=== PATIENT | female | born 1945 | race Caucasian/White ===

== ENCOUNTER 2022-05-14 12:42 | Inpatient (IN) | payer MEDICARE, MEDICAID, SELFPAY ==
[2022-05-14] VITALS (43 sets, daily range): BP systolic 84–128; BP diastolic 34–93; PULSE 77–129; RESP 12–27; TEMP 36.2–36.5; O2SAT 95–100
--- NOTE | ~2022-05-14 | XR_ITS ---
EXAMINATION: XR chest 2V Exam Date/Time: 05/14/2022 15:05 [facility] HISTORY: Cough, fever, right sided rales Comparison: 02/06/2014. RESULT: Lines, tubes, and devices: Cholecystectomy clips. Lungs and pleura: Senescent and emphysematous change. Old granulomatous disease. No focal consolidat ion. Cardiomediastinal silhouette: Stable. Other: No acute osseous or upper abdominal finding. IMPRESSION: No acute cardiopulmonary process. Reviewed, dictated and finalized at location K. CODER
--- NOTE | 2022-05-14 13:54 | ECG_ITS ---
Measurements Intervals [place] Rate: 116 P: 71 NM: 166 QRS: -70 QRSD: 82 T: 73 QT: 311 QTc: 434 Interpretive Statements SINUS TACHYCARDIA POSSIBLE LEFT ATRIAL ENLARGEMENT LEFT ANTERIOR FASCICULAR BLOCK ABNORMAL ECG NO PREVIOUS ECG AVAILABLE FOR COMPARISON Electronically Signed On 05-14-2022 17:01:31 PACKAGING TECHNICIAN by Burton Parker M.D.
--- NOTE | 2022-05-14 14:01 | ED.GENADULT ---
HPI - General Adult General Chief complaint: Upper Respiratory Infection Stated complaint: cough, dizzy, sick for 1 week Time Seen by Provider: 05/14/22 13:45 History of Present Illness HPI narrative: 76-year-old female history of hypertension, osteoarthritis presented with cough, whole body weakness, fevers, chills. Per patient for the last 7 to 10 days she has been feeling overall whole body weakness, cough productive of sputum, subjective fevers chills, which has led her to having decreased oral intake. She reports vomiting and diarrhea. She denied abdominal pain, dysuria, sick contacts, chest pain, shortness of breath. Past medical history: Hypertension, osteoarthritis, possible A. fib, hypothyroid Past surgical history: Surgery for stomach cancer Medications: Metoprolol, levothyroxine Allergies: Penicillin, Reglan, sulfa drugs, codeine Social: Active smoking, denied drinking, recreational drugs Related Data Allergies Allergy/AdvReac Type Severity Reaction Status Date / Time codeine Allergy Unknown Gastrointestinal Verified 05/14/22 12:53 Upset Penicillins Allergy Unknown Rash Verified 05/14/22 12:53 prochlorperazine Allergy Unknown Seizure Verified 05/14/22 12:53 Sulfa (Sulfonamide Allergy Unknown Rash Verified 05/14/22 12:53 Antibiotics) Review of Systems Review of Systems: See HPI PMFSH Comments See HPI Exam Narrative: APPEARANCE: Alert, calm and cooperative, no acute distress, phonating, sitting comfortably during visit, elderly, frail HEAD: atraumatic EYES: Pupils equal round an reactive to light, extra ocular movements intact, no conjunctival injection NOSE: Normal no drainage NECK: Supple, without meningismus RESPIRATORY: Right lower lung warren with rales, no wheezes, remaining lung warren clear, breathing comfortably, saturating 100% on ambient air CARDIOVASCULAR: Tachycardia, regular rhythm, no visible jugular venous distension ABDOMINAL: Soft, nontender, nondistended, no guarding, no rebound/peritoneal signs, no costovertebral tenderness to palpation BACK: no midline tenderness to palpation, no step offs EXTREMITIES: No edema, palpable peripheral pulses, warm, well perfused, no tenderness to bilateral calves. NEURO: Alert, moving all extremities symmetrically SKIN:: Warm, dry. Normal color PSYCHIATRIC: Normal affect/mood Course Reevaluation(s) Reevaluation #1: Patient reassessed after IV fluids, still continues to have myalgias and feeling unwell. Blood pressure improved, tachycardia improved. Case discussed with hospitalist, for a medical admission. Discussion held with patient regarding medical admission for further work-up and optimization, patient agreeable to plan. Given acute nature of presenting disease process and potential for decompensation, the patient would benefit from medical admission for further optimization and management. Date: 05/14/22 Time: 17:45 Date: 05/14/22 Time: 17:44 Vital Signs Vital signs: Vital Signs Temperature 97.1 F L 05/14/22 13:01 Pulse Rate 127 H 05/14/22 13:01 Respiratory Rate 18 05/14/22 13:01 Blood Pressure 84/34 L 05/14/22 13:01 Pulse Oximetry 98 05/14/22 13:01 Temperature 97.1 F L 05/14/22 13:01 Pulse Rate 127 H 05/14/22 13:01 Respiratory Rate 18 05/14/22 13:01 Blood Pressure 84/34 L 05/14/22 13:01 Pulse Oximetry 98 05/14/22 13:[address] [facility] Narrative Medical decision making narrative: Medical Decision Making 76-year-old female history of hypothyroid, osteoarthritis presented with 7 to 10 days of whole body weakness, productive cough, subjective fevers chills. Physical exam notable for rales at right lung bases, elderly appearing, frail. Vitals reviewed. Notable for sinus tachycardia, blood pressure 120s/80s at this time. Remaining vitals within normal limts. Impression: History and exam suggestive of community-acquired pneumonia. Differential diagnosis includes but not limited to pne
[2022-05-14 14:53] LABS: Basophils Percent Auto 0.8 % (0.2-1.2); Eosinophils Percent Auto 0.5 % (0-4.4); Hemoglobin 16.8 g/dL (12.0-15.0); Lymphocytes Absolute Auto 1.31 K/mm3 (0.9-3.2); Lymphocytes Percent Auto 34.3 % (18.3-44.2); Mean Corpuscular HGB Conc 33.6 g/dl (32-36); Mean Corpuscular Hemoglobin 31.2 pg (26-34); Mean Corpuscular Volume 92.8 fl (80-100); Mean Platelet Volume 12.2 fl (7.4-10.4); Monocytes Absolute Auto 0.5 K/mm3 (0.1-0.6); Neutrophils Percent Auto 52.4 % (45.5-73.1); Platelet Count Result 163 k/mm3 (150-375); Red Blood Count 5.39 M/mm3 (4.2-5.4); Red Cell Distribution Width 11.8 % (11.5-14.5); White Blood Count 3.8 K/mm3 (4.5-10.0)
[2022-05-14 15:03] LABS: Alanine Aminotransferase 16 U/L (6-35); Albumin Level 4.8 g/dL (3.5-5.1); Alkaline Phosphatase 75 U/L (38-126); Anion Gap 17 mmol/L (8-16); Aspartate Amino Transferase 26 U/L (14-36); Bilirubin,Total 0.5 mg/dL (0.2-1.3); Blood Urea Nitrogen 35 mg/dL (7-17); Calcium 9.7 mg/dL (8.4-10.2); Carbon Dioxide 18 mmol/L (22-30); Chloride 106 mmol/L (98-107); Estimated CRCL calculation 27 ml/min; Estimated Glomerular Filt Rate 48; Glucose 65 mg/dL (65-110); Lactic Acid Reflex 1.6 mmol/L (0.7-2.0); Lipase 84 U/L (23-300); Potassium 4.7 mmol/L (3.4-5.0); Sodium 141 mmol/L (137-145)
[2022-05-14 15:10] LABS: Ovalocytes 1+ (NORMAL); Platelet Estimate Adequate (Adequate)
[2022-05-14 15:11] LABS: Atypical Lymphocytes Present; Schistocytes None Seen (NORMAL)
[2022-05-14 15:18] LABS: Prothrombin Time 12.3 Seconds (11.1-14.7)
[2022-05-14 15:19] LABS: Partial Thromboplastin Time 26.8 SECONDS (22.3-36.8)
[2022-05-14 15:31] LABS: Troponin I < 0.012 ng/mL (0.000-0.034)
[2022-05-14 15:32] LABS: NT Pro B Type Natriuretic Pept 286 pg/mL (5-100)
[2022-05-14 15:34] LABS: Influenza A QL RT-PCR Positive (Negative); Influenza B QL RT-PCR Negative (Negative); RSV RNA, RT-PCR Negative (Negative); SARS-CoV-2 RNA PCR Negative
--- NOTE | 2022-05-14 15:51 | PC.NURSE ---
updated pt daughter Kate
--- NOTE | 2022-05-14 18:15 | PM.IMHP ---
H&P: HPI History of Present Illness Date/Time: 05/14/22 18:15 Chief Complaint: Weakness and cough. Narrative: This is a nice 76-year-old female smoker with COPD, emphysema, hypertension, GERD, and hypothyroidism who presented to the emergency department via EMS from home for evaluation of weakness and cough. She has not been feeling well for upwards of 7 to 10 days with multiple symptoms to include progressive weakness, lightheadedness and dizziness upon standing, myalgias, arthralgias, cough productive of clear phlegm, nausea, vomiting, some loose stools, chills, and shortness of breath with exertion. She has not had a documented fever to her knowledge. She denies syncope, fall, exertional chest pain, dysuria, and lower extremity edema. She has not sought treatment prior to today and has not taken any medication at home to treat her symptoms. She lives with her sister who has not had similar symptoms. She was afebrile on arrival with a blood pressure of 84/34 though that has responded to IV fluids. She tested positive for influenza A and she is being admitted in this setting for supportive care. Review of Systems Review of Systems: Twelve systems were reviewed and are negative except for as per HPI. [facility], [facility] Past Medical History Medical History (Updated 05/14/22 @ 23:38 by Damaris Polanco PA-C) Arthritis Chronic obstructive pulmonary disease Gastroesophageal reflux disease Hypothyroidism Stomach cancer Tobacco dependence Surgical History Surgical History (Updated 05/14/22 @ 23:35 by Damaris Polanco PA-C) History of cataract extraction History of exploratory laparotomy X2. The 1st surgery was related to her stomach cancer which was completely resected, per patient report. The 2nd was due to what sounds like accidental enterotomy. History of hysterectomy Family History Family History Son Heart disease Daughter Pulmonary embolism Social History Social History (Updated 05/14/22 @ 23:36 by Damaris Polanco PA-C) Social History: Surrogate medical decision maker: Kate Andrews, daughter. Code status: Full code. Would not however want to be on long-term life support. Smoking packs per day: 0.5 Smoking cigarettes per day: 10.0 Years smoked: 67 Smoking pack-years: 33.50 Smoking status: Current every day smoker Tobacco type: cigarettes Second hand tobacco smoke exposure: Yes Alcohol intake: never Substance use: never Lack of Transportation: No Lack of Food: Never True Current Housing: I Have Housing Concerned About Future Housing: No Difficulty Paying Gas/Electric Bills: No Difficulty Paying for Meds: No Currently Unemployed: No Education: High School Diploma/GED Difficulty w/ Childcare or Family Care: No Additional living arrangements comments: The patient lives in [place] with her sister. She had 4 children, 2 whom have passed. Spiritual care concerns: No Meds Home Medications and Allergies Home Medications Medication Instructions Recorded Confirmed Type levothyroxine 75 mcg tablet 75 mcg PO DAILY 05/14/22 05/14/22 History metoprolol succinate 50 mg 50 mg PO DAILY 05/14/22 05/14/22 History tablet,extended release 24 hr omeprazole 40 mg capsule,delayed 40 mg PO BID 05/14/22 05/14/22 History release ondansetron HCl 8 mg tablet 8 mg PO Q12H PRN Nausea 05/14/22 05/14/22 History oxycodone-acetaminophen 5 mg-325 1 tablet PO Q6H PRN Pain 05/14/22 05/14/22 History mg tablet Allergies Allergy/AdvReac Type Severity Reaction Status Date / Time codeine Allergy Unknown Gastrointestinal Verified 05/14/22 12:53 Upset Penicillins Allergy Unknown Rash Verified 05/14/22 12:53 prochlorperazine Allergy Unknown Seizure Verified 05/14/22 12:53 Sulfa (Sulfonamide Allergy Unknown Rash Verified 05/14/22 12:53 Antibiotics) Vital Signs Vital Signs - 24 hr 05/14/22 13:01
--- NOTE | 2022-05-14 21:47 | PC.NURSE ---
Patient sent upstairs with remaining fluids that were not finished in the ED
[2022-05-15] VITALS (7 sets, daily range): BP systolic 93–119; BP diastolic 42–61; PULSE 52–70; RESP 14–18; TEMP 36.3–36.8; O2SAT 96–100
[2022-05-15] MEDS: ACETAMINOPHEN 325 MG TABLET 650 MG PO (00:22)
[2022-05-15] MEDS: OSELTAMIVIR PHOSPHATE ORAL SUSP 30 MG/5 ML SYRINGE PO ×2 (01:09→20:12)
[2022-05-15] MEDS: oxyCODONE/ACETAMINOPHEN (*CRX) 5-325 MG TABLET 1 TABLET PO ×3 (05:17→20:12)
[2022-05-15] MEDS: LEVOTHYROXINE SODIUM 75 MCG TABLET PO (06:09)
[2022-05-15 07:30] LABS: Hematocrit 40.4 % (37.0-47.0); Hemoglobin 13.3 g/dL (12.0-15.0); Mean Corpuscular HGB Conc 32.9 g/dl (32-36); Mean Corpuscular Hemoglobin 30.3 pg (26-34); Mean Platelet Volume 12.4 fl (7.4-10.4); Platelet Count Result 141 k/mm3 (150-375); Red Blood Count 4.39 M/mm3 (4.2-5.4); Red Cell Distribution Width 11.7 % (11.5-14.5); White Blood Count 3.7 K/mm3 (4.5-10.0)
[2022-05-15 07:37] LABS: Alanine Aminotransferase 13 U/L (6-35); Albumin Level 3.7 g/dL (3.5-5.1); Alkaline Phosphatase 51 U/L (38-126); Anion Gap 8 mmol/L (8-16); Aspartate Amino Transferase 22 U/L (14-36); Bilirubin,Total 0.4 mg/dL (0.2-1.3); Blood Urea Nitrogen 24 mg/dL (7-17); Calcium 8.7 mg/dL (8.4-10.2); Carbon Dioxide 22 mmol/L (22-30); Chloride 109 mmol/L (98-107); Estimated CRCL calculation 36 ml/min; Estimated Glomerular Filt Rate > 60; Glucose 78 mg/dL (65-110); Magnesium 2.3 mg/dL (1.6-2.3); Potassium 4.1 mmol/L (3.4-5.0); Sodium 139 mmol/L (137-145)
[2022-05-15] MEDS: PANTOPRAZOLE 40 MG TABLET PO ×2 (08:55→16:39)
[2022-05-15] MEDS: ENOXAPARIN 30 MG/0.3 ML SYRINGE SUB-Q (08:55)
[2022-05-15] MEDS: LACTATED RINGERS 1,000 ML 75 ML IV CONT (09:52)
[2022-05-15] MEDS: METOPROLOL SUCCINATE EXT REL 50 MG TABCR PO (09:52)
[2022-05-15 10:14] LABS: Add Urine Microscopic? YES; Appearance Urine Clear (Clear); Bilirubin Urine 1+ (Negative); Blood Urine Negative (Negative); Color Urine Light Yellow (Yellow); Glucose Urine UA Negative (Negative); Ketones Urine 2+ mg/dL (Negative); Leukocyte Esterase Ur Negative LEU/UL (Negative); Nitrate Urine Negative (Negative); Protein Urine Negative (Negative); Urobilinogen Urine 0.2 mg/dL (<2.0); pH Urine 5.5 (5.0-9.0)
--- NOTE | 2022-05-15 10:26 | PM.IMPN ---
Progress Note: A&P Assessment and Plan (1) Influenza A: Code(s): J10.1 - Influenza due to other identified influenza virus with other respiratory manifestations Status: Acute Assessment and Plan: Supportive care. She has been started on Tamiflu. (2) Dehydration: Code(s): E86.0 - Dehydration Status: Acute Assessment and Plan: Secondary to poor oral intake. She is being judiciously hydrated with close monitoring of volume status and renal function. IV fluids (3) Chronic obstructive pulmonary disease: Code(s): J44.9 - Chronic obstructive pulmonary disease, unspecified Status: Acute Assessment and Plan: No evidence of acute exacerbation. Albuterol as needed. (4) Tobacco dependence: Code(s): F17.200 - Nicotine dependence, unspecified, uncomplicated Status: Acute Assessment and Plan: Smoking cessation is encouraged. She declines the need for nicotine patch at this time. (5) Hypothyroidism: Code(s): E03.9 - Hypothyroidism, unspecified Status: Acute Assessment and Plan: Continue levothyroxine and check TSH. (6) Generalized weakness: Code(s): R53.1 - Weakness Status: Acute Assessment and Plan: Initiate fall precautions. PT/OT once feeling better. (7) Heart murmur: Code(s): R01.1 - Cardiac murmur, unspecified Status: Acute Assessment and Plan: Echocardiogram ordered for evaluation. Subjective Date/time seen: 05/15/22 10:26 Patient still feels very weak. Exam Narrative: General: Thin, frail, mildly ill-appearing female lying on the right side in bed. Weight: 48.08 kilograms. BMI: 20.7. HEENT: Wearing glasses. PERRL, EOMI. Sclera anicteric. Edentulous. Tacky mucous membranes. Neck: Supple. No JVD or lymphadenopathy. Respiratory: Respirations are nonlabored. Occasional cough. Lung sounds are diminished throughout with some rhonchi which improved with cough. Cardiovascular: Regular rate and rhythm with S1-S2. 3/6 systolic murmur at the left sternal border. Gastrointestinal: Abdomen is soft, flat, nontender, and nondistended with positive bowel sounds. Skin: Warm and dry. No rash or lesions on limited exam. Extremities: No cyanosis, clubbing, or edema. Radial and pedal pulses intact. Neurological: Alert. Cranial nerves 2-12 are grossly intact. No gross focal deficits to casual conversation. Psychiatric: Pleasant and cooperative with normal mood and affect. Judgment and insight intact. Objective Data Vital Signs Vital Signs: Vital Signs - 24 hr 05/14/22 13:01 05/14/22 13:42 05/14/22 13:44 Temperature 97.1 F L Pulse Rate 127 H 124 H 122 H Respiratory Rate 18 18 13 Blood Pressure 84/34 L 107/87 Pulse Oximetry 98 97 99 Oxygen Delivery 05/14/22 13:45 05/14/22 13:46 05/14/22 14:00 Temperature Pulse Rate 122 H 122 H 119 H Respiratory Rate 18 19 18 Blood Pressure 114/77 111/75 Pulse Oximetry 95 97 97 Oxygen Delivery 05/14/22 14:01 05/14/22 14:15 05/14/22 14:16 Temperature Pulse Rate 122 H 115 H 123 H Respiratory Rate 12 21 H 17 Blood Pressure 112/79 Pulse Oximetry 96 97 96 Oxygen Delivery 05/14/22 14:30 05/14/22 14:31 05/14/22 14:45 Temperature Pulse Rate 129 H 125 H 129 H Respiratory Rate 17 15 17 Blood Pressure 128/93 H 121/73 Pulse Oximetry 99 98 Oxygen Delivery 05/14/22 14:46 05/14/22 15:00 05/14/22 15:15 Temperature Pulse Rate 125 H 122 H 126 H Respiratory Rate 19 12 18 Blood Pressure Pulse Oximetry 96 Oxygen Delivery 05/14/22 15:30 05/14/22 15:41 05/14/22 15:45 Temperature Pulse Rate 116 H 110 H 111 H Respiratory Rate 16 19 23 H Blood Pressure 114/78 116/64 Pulse Oximetry 96 97 95 Oxygen Delivery 05/14/22 15:46 05/14/22 16:00 05/14/22 16:01 Temperature Pulse Rate 124 H 109 H 114 H Respiratory Rate 22 H 17 27 H Blood Pressure 118/46 L Pulse Oximetry 1
[2022-05-15 10:33] LABS: Mucus Urine Rare /lpf; RBC Urine 0-2 /hpf (0-2); Squamous Epithelial Cell Urine Rare /hpf (Few); WBC Urine 0-3 /hpf
--- NOTE | 2022-05-15 13:58 | PCPTNOTE ---
Attempted PT evaluation this date, pt getting testing done. Will attempt at a later date/time.
[2022-05-15] MEDS: NICOTINE (*PBKC) 4 MG GUM PO (15:11)
--- NOTE | 2022-05-15 23:40 | ECHO_ITS ---
Patient Info Name: Rosalba Carlisle Age: 76 years : 1945 Gender: Female Ht: 60 in Wt: 105 lbs BSA: 1.42 m2 HR: 66 bpm BP: 119 / 61 mmHg Heart Rhythm: Sinus Rhythm Technical Quality: Fair Exam Date: 05/15/2022 1:39 PM Exam Location: [facility] Patient Status: Outpatient Admit Date: 05/14/2022 Staff Ordering Physician: Damaris Polanco PA-C Shank Boner: Alda Luciano RDCS Attending Provider: Tim Barrera MD Referring Physician: Sherri WEAVER; Exam Type: CA echo doppler color flow Study Info Indications - murmur, copd Complete two-dimensional, color flow and Doppler transthoracic echocardiogram is performed. Summary 1. Complete two-dimensional, color flow and Doppler transthoracic echocardiogram is performed. 2. Left ventricular chamber dimension is normal. 3. Left ventricular systolic function is normal, estimated at 65-70%. 4. There is mildly increased left ventricular wall thickness. Sigmoid septum. Heavy trabeculation. 5. The left ventricular diastolic function is grade I diastolic dysfunction. 6. There is no aortic valve stenosis. 7. There is no mitral valve regurgitation. 8. There is trace tricuspid valve regurgitation. 9. No pulmonary hypertension, estimated pulmonary arterial systolic pressure is 20 mmHg. Left Ventricle Left ventricular chamber dimension is normal. Left ventricular systolic function is normal, estimated at 65-70%. There is mildly increased left ventricular wall thickness. Sigmoid septum. Heavy trabeculation. The left ventricular diastolic function is grade I diastolic dysfunction. Right Ventricle Right ventricular chamber dimension is normal. Right ventricular systolic function is normal. Left Atria Left atrial chamber dimension is normal. Right Atria Right atrial chamber dimension is normal. Aortic Valve The aortic valve is not well visualized. There is no aortic valve stenosis. There is trace aortic valve regurgitation. Pulmonic Valve The pulmonic valve is not well visualized. There is trace pulmonic regurgitation. Mitral Valve The mitral valve has thickened leaflets. There is no mitral valve regurgitation. The mitral valve annulus is moderately calcified. Tricuspid Valve The tricuspid valve leaflets are normal. There is trace tricuspid valve regurgitation. No pulmonary hypertension, estimated pulmonary arterial systolic pressure is 20 mmHg. Pericardium/Pleural The pericardium appears normal. There is trivial pericardial effusion. Inferior Vena Cava Normal inferior vena cava with >50% collapse upon inspiration consistent with normal right atrial pressure, 5 mmHg. Aorta The aortic root size at the sinus of Valsalva is normal. There is moderate aortic atherosclerosis. Left Ventricular Outflow Tract Name Value Normal LVOT Doppler LVOT Peak Gradient 7 mmHg LVOT Mean Gradient 3 mmHg LVOT VTI 25 cm LVOT VTI/AV VTI Ratio 0.9 Pulmonic Valve Name Value Normal
[2022-05-16] MEDS: oxyCODONE/ACETAMINOPHEN (*CRX) 5-325 MG TABLET 1 TABLET PO ×2 (03:51→11:33)
[2022-05-16] MEDS: LACTATED RINGERS 1,000 ML 75 ML IV CONT (03:52)
[2022-05-16 05:40] VITALS: BP 113/59; PULSE 52; RESP 14; TEMP 36.8; O2SAT 96
[2022-05-16] MEDS: LEVOTHYROXINE SODIUM 75 MCG TABLET PO (06:00)
[2022-05-16 09:00] VITALS: PULSE 68
[2022-05-16] MEDS: ENOXAPARIN 30 MG/0.3 ML SYRINGE SUB-Q (09:00)
[2022-05-16] MEDS: METOPROLOL SUCCINATE EXT REL 50 MG TABCR PO (09:00)
[2022-05-16] MEDS: PANTOPRAZOLE 40 MG TABLET PO (09:00)
--- NOTE | 2022-05-16 11:20 | PM.DS ---
DS: Admitting Diagnosis Discharge Date May 16, 2022 Admitting Diagnosis Influenza DS: Discharge Diagnosis Discharge Diagnosis (1) Influenza A: Code(s): J10.1 - Influenza due to other identified influenza virus with other respiratory manifestations Status: Acute Assessment and Plan: Supportive care. She has been started on Tamiflu. (2) Dehydration: Code(s): E86.0 - Dehydration Status: Acute Assessment and Plan: Secondary to poor oral intake. She is being judiciously hydrated with close monitoring of volume status and renal function. IV fluids (3) Chronic obstructive pulmonary disease: Code(s): J44.9 - Chronic obstructive pulmonary disease, unspecified Status: Acute Assessment and Plan: No evidence of acute exacerbation. Albuterol as needed. (4) Tobacco dependence: Code(s): F17.200 - Nicotine dependence, unspecified, uncomplicated Status: Acute Assessment and Plan: Smoking cessation is encouraged. She declines the need for nicotine patch at this time. (5) Hypothyroidism: Code(s): E03.9 - Hypothyroidism, unspecified Status: Acute Assessment and Plan: Continue levothyroxine and check TSH. (6) Generalized weakness: Code(s): R53.1 - Weakness Status: Acute Assessment and Plan: Initiate fall precautions. PT/OT once feeling better. (7) Heart murmur: Code(s): R01.1 - Cardiac murmur, unspecified Status: Acute Assessment and Plan: Echocardiogram ordered for evaluation. DS: Summary Hospital Course Hospital Course: Patient is a 76-year-old female who came in with a cough and congestion was found to have influenza. Patient was started on Tamiflu immediately improved. Concurrently she is not requiring any oxygen she sitting up in bed and able to walk around the room. She is satting 96% on room air. Will continue Tamiflu for total 5 days otherwise patient can be discharged home. Time Spent with Patient Time attestation: Total time spent providing and/or coordinating discharge services: Exam Narrative: General: Thin, frail, mildly ill-appearing female lying on the right side in bed. Weight: 48.08 kilograms. BMI: 20.7. HEENT: Wearing glasses. PERRL, EOMI. Sclera anicteric. Edentulous. Tacky mucous membranes. Neck: Supple. No JVD or lymphadenopathy. Respiratory: Respirations are nonlabored. Occasional cough. Lung sounds are diminished throughout with some rhonchi which improved with cough. Cardiovascular: Regular rate and rhythm with S1-S2. 3/6 systolic murmur at the left sternal border. Gastrointestinal: Abdomen is soft, flat, nontender, and nondistended with positive bowel sounds. Skin: Warm and dry. No rash or lesions on limited exam. Extremities: No cyanosis, clubbing, or edema. Radial and pedal pulses intact. Neurological: Alert. Cranial nerves 2-12 are grossly intact. No gross focal deficits to casual conversation. Psychiatric: Pleasant and cooperative with normal mood and affect. Judgment and insight intact. DS: Data Data Completed and Pending Labs on day of discharge: Preliminary micro results at discharge 05/14/22 14:40 Blood Culture - Preliminary Blood 05/14/22 14:40 Blood Culture - Preliminary Blood Discharge Plan Discharge Attending physician on discharge: Tim Barrera Discharging Clinician: Tim Barrera Patient Disposition: Home, Self-Care Activity: no preference Diet: as tolerated Patient Instructions: Antibiotic Form Stand Alone Forms: General Discharge Information Follow-up/Referrals: Xiomara,Marta Gil MD [Primary Care Provider] - Discharge Medications: New oseltamivir [Tamiflu] 30 mg Capsule 30 mg PO HS 5 Days Qty: 5 0RF Continued metoprolol succinate 50 mg Tablet Extended Release 24 Hr 50 mg PO DAILY ondansetron HCl 8 mg Tablet 8 mg PO Q12H PRN (Reason
== END 2022-05-16 13:30 | disposition home or self-care (01) | DRG 195 ==
LOC: ANHED 17:44 → ANH3MEDSUR 20:33
PROVIDERS: Physician Assistant; Admitting Provider Chiropractor; Emergency Provider Emergency Medicine; PCP Family Medicine; Visit Provider Chiropractor
DX: J10.1 Influenza due to other identified influenza virus with other respiratory manifestations (principal); Z20.822 Contact with and (suspected) exposure to COVID-19; E86.0 Dehydration; J44.9 Chronic obstructive pulmonary disease, unspecified; E03.9 Hypothyroidism, unspecified; R01.1 Cardiac murmur, unspecified; I10 Essential (primary) hypertension; M19.90 Unspecified osteoarthritis, unspecified site; F17.210 Nicotine dependence, cigarettes, uncomplicated; Z85.028 Personal history of other malignant neoplasm of stomach; Z90.710 Acquired absence of both cervix and uterus; Z98.49 Cataract extraction status, unspecified eye
CPT/HCPCS: 36415; 71046; 80053; 81001; 83605; 83690; 83735; 83880; 84443; 84484; 85025; 85027; 85610; 85730; 87040; 87637; 93005; 93306; 96361; 96365; 96372; 96375; 97161; 99285; A9270; G0378; J0456; J0696; J1650; J7030; J7120

== ENCOUNTER 2024-01-19 20:18 | Inpatient (IN) | payer MEDICARE, MEDICAID, SELFPAY ==
--- NOTE | ~2024-01-19 | XR_ITS ---
EXAMINATION: XR chest 1V portable DATE: 01/19/2024 21:04 INDICATION: Shortness of breath TECHNIQUE: frontal view of the chest was obtained. COMPARISON: Chest radiograph dated 05/14/2022 FINDINGS: The lungs remain clear with no focal airspace opacities, pulmonary edema, pleural effusion or pneumot horax. The cardiomediastinal silhouette is normal. Calcified right hilar lymph node consistent with o ld granulomatous disease. Cholecystectomy clips in right upper quadrant. IMPRESSION: 1. No acute cardiopulmonary disease. Reviewed, dictated and finalized at location A.
[2024-01-19 20:16] VITALS: BP 133/68; PULSE 95; RESP 15; TEMP 36.6; O2SAT 89; O2SAT 97
[2024-01-19 20:24] VITALS: PULSE 95; O2SAT 99
--- NOTE | 2024-01-19 20:25 | ECG_ITS ---
Test Date: 2024-01-19 20:34:43 Measurements Intervals [place] Rate: 91 P: 55 IN: 179 QRS: -54 QRSD: 88 T: 34 QT: 348 QTc: 430 Interpretive Statements SINUS RHYTHM LEFT ANTERIOR FASCICULAR BLOCK ABNORMAL ECG No previous ECG available for comparison Electronically Signed On 01-20-2024 07:33:52 CDT by Will Parker D.O.
[2024-01-19 20:38] LABS: Basophils Absolute Auto 0.1 K/mm3 (0.0-0.1); Basophils Percent Auto 0.9 % (0.2-1.2); Eosinophils Absolute Auto 0.1 K/mm3 (0-0.3); Eosinophils Percent Auto 2.1 % (0-4.4); Hematocrit 42.9 % (37.0-47.0); Hemoglobin 14.4 g/dL (12.0-15.0); Immature Granulocyte Absolute 0.02 K/mm3 (0.00-0.031); Immature Granulocyte Percent A 0.3 % (0-0.5); Immature Platelet Fraction Pct 11.1 % (0.9-11.2); Lymphocytes Absolute Auto 1.79 K/mm3 (0.9-3.2); Lymphocytes Percent Auto 30.6 % (18.3-44.2); Mean Corpuscular HGB Conc 33.6 g/dl (32-36); Mean Corpuscular Hemoglobin 31.9 pg (26-34); Mean Corpuscular Volume 94.9 fl (80-100); Mean Platelet Volume 11.6 fl (7.4-10.4); Monocytes Absolute Auto 0.7 K/mm3 (0.1-0.6); Monocytes Percent Auto 12.6 % (2.6-8.5); Neutrophils Absolute Auto 3.1 K/mm3 (1.3-6.7); Neutrophils Percent Auto 53.5 % (45.5-73.1); Platelet Count Result 139 k/mm3 (150-375); Red Blood Count 4.52 M/mm3 (4.2-5.4); Red Cell Distribution Width 11.8 % (11.5-14.5); White Blood Count 5.9 K/mm3 (4.5-10.0)
[2024-01-19 20:55] LABS: Alanine Aminotransferase 11 U/L (6-35); Albumin Level 4.3 g/dL (3.5-5.1); Alkaline Phosphatase 63 U/L (38-126); Anion Gap 10 mmol/L (4-12); Aspartate Amino Transferase 19 U/L (14-36); Bilirubin,Total 0.4 mg/dL (0.2-1.3); Blood Urea Nitrogen 14 mg/dL (7-17); Calcium 9.8 mg/dL (8.4-10.2); Carbon Dioxide 25 mmol/L (22-30); Chloride 105 mmol/L (98-107); Estimated CRCL calculation 31 ml/min; Estimated Glomerular Filt Rate 60; Glucose 105 mg/dL (65-110); Potassium 3.8 mmol/L (3.4-5.0); Sodium 140 mmol/L (137-145)
[2024-01-19] MEDS: SODIUM CHLORIDE 0.9% 999 ML IV CONT (22:07)
[2024-01-19] MEDS: MAGNESIUM SULF 2 GM/WATER 50ML 2 GM/50 ML BAG IVPB (22:07)
[2024-01-19 22:12] LABS: Influenza A QL RT-PCR Negative (Negative); Influenza B QL RT-PCR Negative (Negative); RSV RNA, RT-PCR Negative (Negative); SARS-CoV-2 RNA PCR Negative (Negative)
[2024-01-19 22:13] VITALS: PULSE 93; RESP 17
[2024-01-19] MEDS: IPRATROPIUM 0.5 MG/ALBUTEROL SULFATE 2.5 MG AMPUL.NEB 3 ML 12 ML INHALATION (22:13)
[2024-01-19 22:15] VITALS: BP 118/85; PULSE 95; RESP 12; O2SAT 94
[2024-01-19 22:18] VITALS: O2SAT 98
--- NOTE | 2024-01-19 22:18 | PCRCNOTE ---
Pt refuses ABG
--- NOTE | 2024-01-19 22:36 | ED.GENADULT ---
HPI - General Adult General Chief complaint: Asthma Stated complaint: SOB Time Seen by Provider: 01/19/24 20:44 History of Present Illness HPI narrative: This is an 78-year-old female with COPD and is a current smoker presenting ED for difficulty breathing. Patient says she has been have difficulty breathing for the last 1 week. She says she has had intermittent fevers over 100. She has a productive cough and is still smoking. She has not been able to reach her primary care physician. She denies nausea vomiting diarrhea chest pain abdominal pain or urinary system. Related Data Home Medications Medication Instructions Recorded Confirmed levothyroxine 75 mcg tablet 75 mcg PO DAILY 05/14/22 05/14/22 metoprolol succinate 50 mg 50 mg PO DAILY 05/14/22 05/14/22 tablet,extended release 24 hr omeprazole 40 mg capsule,delayed 40 mg PO BID 05/14/22 05/14/22 release ondansetron HCl 8 mg tablet 8 mg PO Q12H PRN Nausea 05/14/22 05/14/22 oxycodone-acetaminophen 5 mg-325 1 tablet PO Q6H PRN Pain 05/14/22 05/14/22 mg tablet Allergies Allergy/AdvReac Type Severity Reaction Status Date / Time codeine Allergy Unknown Gastrointestinal Verified 05/14/22 12:53 Upset Penicillins Allergy Unknown Rash Verified 05/14/22 12:53 prochlorperazine Allergy Unknown Seizure Verified 05/14/22 12:53 Sulfa (Sulfonamide Allergy Unknown Rash Verified 05/14/22 12:53 Antibiotics) [facility] Past Medical History Medical History Arthritis Chronic obstructive pulmonary disease Gastroesophageal reflux disease Hypothyroidism Stomach cancer Tobacco dependence Surgical History Surgical History History of cataract extraction History of exploratory laparotomy X2. The 1st surgery was related to her stomach cancer which was completely resected, per patient report. The 2nd was due to what sounds like accidental enterotomy. History of hysterectomy Family History Family History Son Heart disease Daughter Pulmonary embolism Social History Social History Social History: Surrogate medical decision maker: Kate Andrews, daughter. Code status: Full code. Would not however want to be on long-term life support. Smoking packs per day: 0.5 Smoking cigarettes per day: 10.0 Years smoked: 67 Smoking pack-years: 33.50 Smoking status: Current every day smoker Tobacco type: cigarettes Second hand tobacco smoke exposure: Yes Alcohol intake: never Substance use: never Lack of Transportation: No Lack of Food: Never True Current Housing: I Have Housing Concerned About Future Housing: No Difficulty Paying Gas/Electric Bills: No Difficulty Paying for Meds: No Currently Unemployed: No Education: High School Diploma/GED Difficulty w/ Childcare or Family Care: No Additional living arrangements comments: The patient lives in [place] with her sister. She had 4 children, 2 whom have passed. Spiritual care concerns: No Exam Narrative: APPEARANCE: No apparent distress. Patient smells of cigarette smoke Head: atraumatic. EYES: EOMI, NOSE: Atraumatic NECK: Trachea midline RESPIRATORY: productive cough, scattered wheezing, rhonchi in the left CARDIOVASCULAR: RRR, no peripheral edema ABDOMINAL: Non-distended soft nontender MUSCULOSKELETAl: No obvious deformities NEURO: Alert. Moving 4/4 extremities SKIN:: Warm, dry. Normal color PSYCHIATRIC: Normal affect Course Vital Signs Vital signs: Vital Signs Temperature 97.8 F 01/19/24 20:16 Pulse Rate 95 01/19/24 20:16 Respiratory Rate 15 01/19/24 20:16 Blood Pressure 133/68 01/19/24 20:16 Pulse Oximetry 97 01/19/24 20:16 Oxygen Delivery Nasal Cannula 01/19/24 20:16 Oxygen Flow Rate 2 01/19/24 20:16
[2024-01-19 22:47] VITALS: PULSE 102; RESP 16
[2024-01-20] VITALS (18 sets, daily range): BP systolic 103–136; BP diastolic 50–77; PULSE 71–131; RESP 14–22; TEMP 36.6–36.8; O2SAT 94–100
[2024-01-20] MEDS: AZITHROMYCIN 500 MG/NS 250 ML 500 MG/250 ML BAG 250 MG IVPB ×2 (00:01→23:50)
--- NOTE | 2024-01-20 00:02 | PC.NURSE ---
This RN checked to see if LR and azithromyocin are IV compatible and micromedex states they are.
[2024-01-20] MEDS: LACTATED RINGERS 1,000 ML 75 ML IV CONT (00:06)
[2024-01-20] MEDS: ACETAMINOPHEN 500 MG TABLET 1000 MG PO (00:13)
--- NOTE | 2024-01-20 03:46 | PCRCNOTE ---
Window of time for administration has passed. See next scheduled administration.
[2024-01-20] MEDS: oxyCODONE/ACETAMINOPHEN (*CRX) 5-325 MG TABLET 1 TABLET PO ×4 (04:07→23:49)
--- NOTE | 2024-01-20 04:33 | PM.IMHP ---
H&P: HPI History of Present Illness Date/Time: 01/20/24 04:33 Chief Complaint: Shortness of breath for 4 days Narrative: 78-year-old female past medical history of chronic tobacco abuse, COPD, hypothyroidism, essential hypertension and chronic pain who presented to the ER via EMS from home due to 4 days of shortness of breath. The patient reports that she has been having a cough for 2-3 weeks. However last week she has developed nausea increased weakness fatigue and worsening sinus congestion. She reports copious amounts of clear nasal drainage. She has had a cough productive of clear sputum. She stated that initially her sputum was green in color for 1-1.5 weeks. However her sputum has now cleared. However few days ago she developed a low-grade temperature and on the before coming to the ER her T-max was a 100.8?. She did not take any Tylenol or [id number] medications. She reports worsening of her chronic back pain and peripheral neuropathy due to her respiratory symptoms. She states that she was recently started on gabapentin for restless leg syndrome. She has been on oxycodone for many years ever since she had stomach cancer. She does not know if the cancer center stomach or colon. She believes that she had her surgeries for cancer at [place]. She also reports that she has a mass in her head and mass in her right jaw that is been chronic and present for years that she has failed to follow-up with her cancer doctor about. She cannot recall where exactly she had evaluation for those issues at. The patient is alert oriented x3 but is only a fair to poor historian regarding her past medical history. She denies any significant headaches, memory issues, seizures or visual changes. She reports that she has chronic maxillary sinus pressure that has been worse recently. She has never tried any in her nasal steroids. She reports that she has a spot at the top of her old surgical scar on her abdomen that when pressure is applied to it in makes her feel like she is going to vomit. She reports that she thinks her weight is stable. She has had decreased appetite over the last week or so. She usually only has a bowel movement every 2 or 3 days. It is been about 5 days due to her decreased oral intake. She denies urinary symptoms. She has smoked 1 pack per day since she was a teenager. She quit once for 5 years but then started smoking again when her 24 years ago. She has not tried to quit since then. Her son and her sister that she lives with both smoke as well. Review of Systems Review of Systems: 12 systems were reviewed with pertinent positives and negatives per HPI. Except as documented in the HPI, all other systems were reviewed and are negative. [facility] Past Medical History Medical History (Updated 01/20/24 @ 07:13 by Yoli Armijo DO) Arthritis Chronic back pain Chronic obstructive pulmonary disease Gastroesophageal reflux disease Hypothyroidism Restless leg syndrome Stomach cancer (~2019) Tobacco dependence Surgical History Surgical History History of cataract extraction History of exploratory laparotomy X2. The 1st surgery was related to her stomach cancer which was completely resected, per patient report. The 2nd was due to what sounds like accidental enterotomy. History of hysterectomy Family History Family History Son Heart disease Daughter Pulmonary embolism Social History Social History (Updated 01/20/24 @ 07:01 by Yoli Armijo DO) Social History: Surrogate medical decision maker: Kate Carlisle, daughter. Code status: DNR/DNI (per patient request. She states that she does not think that she would do well if she ended up intubated. She would be okay with noninvasive BiPAP. For heart stopped she would not want her heart to be restarted.) Smoking packs pe
[2024-01-20] MEDS: LEVOTHYROXINE SODIUM 75 MCG TABLET PO (05:33)
[2024-01-20] MEDS: IPRATROPIUM 0.5 MG/ALBUTEROL SULFATE 2.5 MG AMPUL.NEB 3 ML INHALATION ×3 (07:34→19:42)
[2024-01-20] MEDS: ENOXAPARIN 40 MG/0.4 ML SYRINGE SUB-Q (07:47)
[2024-01-20] MEDS: METOPROLOL SUCCINATE EXT REL 50 MG TABCR PO (07:47)
[2024-01-20] MEDS: PANTOPRAZOLE 40 MG TABLET PO ×2 (07:47→21:14)
[2024-01-20] MEDS: NICOTINE (*PBKC) 21 MG PATCH 1 PATCH TRANSDERM (07:47)
[2024-01-20 09:47] LABS: Hematocrit 35.7 % (37.0-47.0); Hemoglobin 11.4 g/dL (12.0-15.0); Mean Corpuscular HGB Conc 31.9 g/dl (32-36); Mean Corpuscular Hemoglobin 31.1 pg (26-34); Mean Corpuscular Volume 97.3 fl (80-100); Mean Platelet Volume 11.3 fl (7.4-10.4); Platelet Count Result 147 k/mm3 (150-375); Red Blood Count 3.67 M/mm3 (4.2-5.4); Red Cell Distribution Width 11.9 % (11.5-14.5)
[2024-01-20] MEDS: methylPREDNISolone SOD SUCC 125 MG VIAL 60 MG IV PUSH ×3 (11:01→23:49)
--- NOTE | 2024-01-20 11:33 | PM.IMPN ---
Progress Note: A&P Assessment and Plan (1) COPD exacerbation: Code(s): J44.1 - Chronic obstructive pulmonary disease with (acute) exacerbation Status: Acute Assessment and Plan: Supportive care Selvin DM ordered prn for cough Urine for legionella and strep pneumo are pending. Continue Rocephin and Azithromycin Continue flonase Continue Duonebs Start Solumedrol 60 mg Q6 hrs. Monitor labs and VS. Provide supplemental oxygen if needed. (2) Fever: Qualifiers: Fever type: unspecified Qualified Code(s): R50.9 - Fever, unspecified Code(s): R50.9 - Fever, unspecified Status: Acute Assessment and Plan: PRN Tylenol Monitor VS (3) Hypoxia: Code(s): R09.02 - Hypoxemia Status: Resolved Assessment and Plan: Oxygen saturations of 100% on room air. See plan for #1 (4) Sinusitis, maxillary, chronic: Code(s): J32.0 - Chronic maxillary sinusitis Status: Acute Assessment and Plan: Continue Rocephin and Azithromycin Continue Flonase (5) Chronic back pain: Qualifiers: Back pain location: back pain in unspecified location Back pain laterality: bilateral Qualified Code(s): M54.9 - Dorsalgia, unspecified; G89.29 - Other chronic pain Code(s): M54.9 - Dorsalgia, unspecified; G89.29 - Other chronic pain Status: Chronic Assessment and Plan: Chronic in nature. Continue Gabapentin Continue Tylenol Continue PRN Oxycodone. (6) Restless leg syndrome: Code(s): G25.81 - Restless legs syndrome Status: Chronic Assessment and Plan: Continue pain meds. (7) Tobacco dependence: Code(s): F17.200 - Nicotine dependence, unspecified, uncomplicated Status: Acute Time Spent With Patient Time with patient: 25 - 35 minutes Subjective Date/time seen: 01/20/24 1030 Interval history: From H&P: Chief Complaint: Shortness of breath for 4 days Narrative: 78-year-old female past medical history of chronic tobacco abuse, COPD, hypothyroidism, essential hypertension and chronic pain who presented to the ER via EMS from home due to 4 days of shortness of breath. The patient reports that she has been having a cough for 2-3 weeks. However last week she has developed nausea increased weakness fatigue and worsening sinus congestion. She reports copious amounts of clear nasal drainage. She has had a cough productive of clear sputum. She stated that initially her sputum was green in color for 1-1.5 weeks. However her sputum has now cleared. However few days ago she developed a low-grade temperature and on the 1st before coming to the ER her T-max was a 100.8?. She did not take any Tylenol or jigz-wfe-jtnzede medications. She reports worsening of her chronic back pain and peripheral neuropathy due to her respiratory symptoms. She states that she was recently started on gabapentin for restless leg syndrome. She has been on oxycodone for many years ever since she had stomach cancer. She does not know if the cancer center stomach or colon. She believes that she had her surgeries for cancer at [place]. She also reports that she has a mass in her head and mass in her right jaw that is been chronic and present for years that she has failed to follow-up with her cancer doctor about. She cannot recall where exactly she had evaluation for those issues at. The patient is alert oriented x3 but is only a fair to poor historian regarding her past medical history. She denies any significant headaches, memory issues, seizures or visual changes. She reports that she has chronic maxillary sinus pressure that has been worse recently. She has never tried any in her nasal steroids. She reports that she has a spot at the top of her old surgical scar on her abdomen that when pressure is applied to it in makes her feel like she is going to vomit. She reports that she thinks her weight is stable. She has had de
[2024-01-20] MEDS: polyethylene glycoL 3350 17 GM POWD.PACK PO (21:14)
[2024-01-20] MEDS: ATORVASTATIN 40 MG TABLET PO (21:14)
[2024-01-20] MEDS: GABAPENTIN 300 MG CAPSULE PO (21:14)
[2024-01-21] VITALS (18 sets, daily range): BP systolic 99–139; BP diastolic 47–67; PULSE 63–99; RESP 14–18; TEMP 36.6–37.1; O2SAT 95–98
[2024-01-21] MEDS: IPRATROPIUM 0.5 MG/ALBUTEROL SULFATE 2.5 MG AMPUL.NEB 3 ML INHALATION ×4 (01:16→20:35)
[2024-01-21] MEDS: oxyCODONE/ACETAMINOPHEN (*CRX) 5-325 MG TABLET 1 TABLET PO ×3 (05:30→22:02)
[2024-01-21] MEDS: LEVOTHYROXINE SODIUM 75 MCG TABLET PO (05:30)
[2024-01-21] MEDS: methylPREDNISolone SOD SUCC 125 MG VIAL 60 MG IV PUSH (05:30)
[2024-01-21 06:54] LABS: Hematocrit 35.5 % (37.0-47.0); Hemoglobin 11.7 g/dL (12.0-15.0); Immature Granulocyte Absolute 0.03 K/mm3 (0.00-0.031); Immature Granulocyte Percent A 0.6 % (0-0.5); Lymphocytes Absolute Auto 0.51 K/mm3 (0.9-3.2); Lymphocytes Percent Auto 10.3 % (18.3-44.2); Mean Corpuscular Hemoglobin 31.4 pg (26-34); Mean Corpuscular Volume 95.2 fl (80-100); Mean Platelet Volume 11.3 fl (7.4-10.4); Monocytes Absolute Auto 0.1 K/mm3 (0.1-0.6); Monocytes Percent Auto 2.2 % (2.6-8.5); Neutrophils Absolute Auto 4.3 K/mm3 (1.3-6.7); Neutrophils Percent Auto 86.9 % (45.5-73.1); Platelet Count Result 151 k/mm3 (150-375); Red Blood Count 3.73 M/mm3 (4.2-5.4); Red Cell Distribution Width 11.7 % (11.5-14.5); White Blood Count 4.9 K/mm3 (4.5-10.0)
[2024-01-21 07:06] LABS: Alanine Aminotransferase 11 U/L (6-35); Albumin Level 3.8 g/dL (3.5-5.1); Alkaline Phosphatase 59 U/L (38-126); Anion Gap 7 mmol/L (4-12); Aspartate Amino Transferase 18 U/L (14-36); Bilirubin,Total 0.3 mg/dL (0.2-1.3); Blood Urea Nitrogen 12 mg/dL (7-17); Calcium 9.4 mg/dL (8.4-10.2); Carbon Dioxide 25 mmol/L (22-30); Chloride 108 mmol/L (98-107); Estimated CRCL calculation 40 ml/min; Estimated Glomerular Filt Rate > 60; Glucose 142 mg/dL (65-110); Potassium 4.3 mmol/L (3.4-5.0); Sodium 140 mmol/L (137-145)
[2024-01-21] MEDS: NICOTINE (*PBKC) 21 MG PATCH 1 PATCH TRANSDERM (09:06)
[2024-01-21] MEDS: METOPROLOL SUCCINATE EXT REL 50 MG TABCR PO (09:07)
[2024-01-21] MEDS: ENOXAPARIN 40 MG/0.4 ML SYRINGE SUB-Q (09:07)
[2024-01-21] MEDS: PANTOPRAZOLE 40 MG TABLET PO ×2 (09:07→22:01)
[2024-01-21] MEDS: polyethylene glycoL 3350 17 GM POWD.PACK PO (09:15)
[2024-01-21] MEDS: FLUTICASONE PROPIONATE 0.05% NA SPR 16 GM BTL (*BKC) 2 SPRAY NASAL (09:42)
--- NOTE | 2024-01-21 10:25 | P.PNIM_ITS ---
Progress Note: A&P Assessment and Plan (1) COPD exacerbation: Code(s): J44.1 - Chronic obstructive pulmonary disease with (acute) exacerbation Status: Acute Assessment and Plan: * Supportive care * Robitussin DM ordered prn for cough * Urine for legionella and strep pneumo are pending. * Continue Rocephin and Azithromycin * Continue flonase * Continue Duonebs * Start Solumedrol 60 mg Q6 hrs. * Monitor labs and VS. * Provide supplemental oxygen if needed. 01/21/24: * IV steroids switched to oral. (2) Fever: Qualifiers: Fever type: unspecified Qualified Code(s): R50.9 - Fever, unspecified Code(s): R50.9 - Fever, unspecified Status: Acute Assessment and Plan: * PRN Tylenol * Monitor VS (3) Hypoxia: Code(s): R09.02 - Hypoxemia Status: Resolved Assessment and Plan: * Oxygen saturations of 100% on room air. * See plan for #1 (4) Sinusitis, maxillary, chronic: Code(s): J32.0 - Chronic maxillary sinusitis Status: Acute Assessment and Plan: * Continue Rocephin and Azithromycin * Continue Flonase (5) Chronic back pain: Qualifiers: Back pain location: back pain in unspecified location Back pain laterality: bilateral Qualified Code(s): M54.9 - Dorsalgia, unspecified; G89.29 - Other chronic pain Code(s): M54.9 - Dorsalgia, unspecified; G89.29 - Other chronic pain Status: Chronic Assessment and Plan: * Chronic in nature. * Continue Gabapentin * Continue Tylenol * Continue PRN Oxycodone. (6) Restless leg syndrome: Code(s): G25.81 - Restless legs syndrome Status: Chronic Assessment and Plan: * Continue pain meds. (7) Tobacco dependence: Code(s): F17.200 - Nicotine dependence, unspecified, uncomplicated Status: Acute Time Spent With Patient Time with patient: 15 - 25 minutes Subjective Date/time seen: 01/21/24 0830 Interval history: From H&P: Chief Complaint: Shortness of breath for 4 days Narrative: 78-year-old female past medical history of chronic tobacco abuse, COPD, hypothyroidism, essential hypertension and chronic pain who presented to the ER via EMS from home due to 4 days of shortness of breath. The patient reports that she has been having a cough for 2-3 weeks. However last week she has developed nausea increased weakness fatigue and worsening sinus congestion. She reports copious amounts of clear nasal drainage. She has had a cough productive of clear sputum. She stated that initially her sputum was green in color for 1- 1.5 weeks. However her sputum has now cleared. However few days ago she developed a low-grade temperature and on the 1st before coming to the ER her T- max was a 100.8?. She did not take any Tylenol or rrck-rwf-syznxrp medications. She reports worsening of her chronic back pain and peripheral neuropathy due to her respiratory symptoms. She states that she was recently started on gabapent in for restless leg syndrome. She has been on oxycodone for many years ever since she had stomach cancer. She does not know if the cancer center stomach or colon. She believes that she had her surgeries for cancer at [place]. She also reports that she has a mass in her head and mass in her right jaw that is been chronic and present for years that she has failed to follow-up with her cancer doctor about. She cannot recall where exactly she had evaluation for those issues at. The patient is alert oriented x3 but is only a fair to poor historian regarding her past medical history. She denies a
--- NOTE | 2024-01-21 10:25 | PM.IMPN ---
Progress Note: A&P Assessment and Plan (1) COPD exacerbation: Code(s): J44.1 - Chronic obstructive pulmonary disease with (acute) exacerbation Status: Acute Assessment and Plan: Supportive care Selvin DM ordered prn for cough Urine for legionella and strep pneumo are pending. Continue Rocephin and Azithromycin Continue flonase Continue Duonebs Start Solumedrol 60 mg Q6 hrs. Monitor labs and VS. Provide supplemental oxygen if needed. 01/21/24: IV steroids switched to oral. (2) Fever: Qualifiers: Fever type: unspecified Qualified Code(s): R50.9 - Fever, unspecified Code(s): R50.9 - Fever, unspecified Status: Acute Assessment and Plan: PRN Tylenol Monitor VS (3) Hypoxia: Code(s): R09.02 - Hypoxemia Status: Resolved Assessment and Plan: Oxygen saturations of 100% on room air. See plan for #1 (4) Sinusitis, maxillary, chronic: Code(s): J32.0 - Chronic maxillary sinusitis Status: Acute Assessment and Plan: Continue Rocephin and Azithromycin Continue Flonase (5) Chronic back pain: Qualifiers: Back pain location: back pain in unspecified location Back pain laterality: bilateral Qualified Code(s): M54.9 - Dorsalgia, unspecified; G89.29 - Other chronic pain Code(s): M54.9 - Dorsalgia, unspecified; G89.29 - Other chronic pain Status: Chronic Assessment and Plan: Chronic in nature. Continue Gabapentin Continue Tylenol Continue PRN Oxycodone. (6) Restless leg syndrome: Code(s): G25.81 - Restless legs syndrome Status: Chronic Assessment and Plan: Continue pain meds. (7) Tobacco dependence: Code(s): F17.200 - Nicotine dependence, unspecified, uncomplicated Status: Acute Time Spent With Patient Time with patient: 15 - 25 minutes Subjective Date/time seen: 01/21/24 0830 Interval history: From H&P: Chief Complaint: Shortness of breath for 4 days Narrative: 78-year-old female past medical history of chronic tobacco abuse, COPD, hypothyroidism, essential hypertension and chronic pain who presented to the ER via EMS from home due to 4 days of shortness of breath. The patient reports that she has been having a cough for 2-3 weeks. However last week she has developed nausea increased weakness fatigue and worsening sinus congestion. She reports copious amounts of clear nasal drainage. She has had a cough productive of clear sputum. She stated that initially her sputum was green in color for 1-1.5 weeks. However her sputum has now cleared. However few days ago she developed a low-grade temperature and on the 1st before coming to the ER her T-max was a 100.8?. She did not take any Tylenol or rjma-uzk-dspippa medications. She reports worsening of her chronic back pain and peripheral neuropathy due to her respiratory symptoms. She states that she was recently started on gabapentin for restless leg syndrome. She has been on oxycodone for many years ever since she had stomach cancer. She does not know if the cancer center stomach or colon. She believes that she had her surgeries for cancer at [place]. She also reports that she has a mass in her head and mass in her right jaw that is been chronic and present for years that she has failed to follow-up with her cancer doctor about. She cannot recall where exactly she had evaluation for those issues at. The patient is alert oriented x3 but is only a fair to poor historian regarding her past medical history. She denies any significant headaches, memory issues, seizures or visual changes. She reports that she has chronic maxillary sinus pressure that has been worse recently. She has never tried any in her nasal steroids. She reports that she has a spot at the top of her old surgical scar on her abdomen that when pressure is applied to it in makes her feel like she is going to vomit. She reports that she t
[2024-01-21] MEDS: predniSONE 40 MG, predniSONE 10 MG 50 MG PO (22:01)
[2024-01-21] MEDS: GABAPENTIN 300 MG CAPSULE PO (22:02)
[2024-01-21] MEDS: ATORVASTATIN 40 MG TABLET PO (22:02)
[2024-01-21] MEDS: AZITHROMYCIN 500 MG/NS 250 ML 500 MG/250 ML BAG 250 MG IVPB (23:30)
[2024-01-22] VITALS (10 sets, daily range): BP systolic 113; BP diastolic 51–63; PULSE 67–88; RESP 16–18; TEMP 36.8–37.2; O2SAT 95–98
[2024-01-22] MEDS: IPRATROPIUM 0.5 MG/ALBUTEROL SULFATE 2.5 MG AMPUL.NEB 3 ML INHALATION ×2 (02:23→08:33)
[2024-01-22] MEDS: LEVOTHYROXINE SODIUM 75 MCG TABLET PO (05:52)
[2024-01-22] MEDS: oxyCODONE/ACETAMINOPHEN (*CRX) 5-325 MG TABLET 1 TABLET PO (05:52)
[2024-01-22 08:35] LABS: Basophils Percent Auto 0.1 % (0.2-1.2); Hematocrit 34.4 % (37.0-47.0); Immature Granulocyte Absolute 0.17 K/mm3 (0.00-0.031); Immature Granulocyte Percent A 1.7 % (0-0.5); Lymphocytes Percent Auto 6.1 % (18.3-44.2); Mean Corpuscular Hemoglobin 30.6 pg (26-34); Mean Corpuscular Volume 95.6 fl (80-100); Mean Platelet Volume 11.7 fl (7.4-10.4); Monocytes Absolute Auto 0.4 K/mm3 (0.1-0.6); Monocytes Percent Auto 3.9 % (2.6-8.5); Neutrophils Absolute Auto 8.7 K/mm3 (1.3-6.7); Neutrophils Percent Auto 88.2 % (45.5-73.1); Platelet Count Result 175 k/mm3 (150-375); Red Cell Distribution Width 11.9 % (11.5-14.5); White Blood Count 9.8 K/mm3 (4.5-10.0)
[2024-01-22 08:56] LABS: Alanine Aminotransferase 11 U/L (6-35); Albumin Level 3.5 g/dL (3.5-5.1); Alkaline Phosphatase 45 U/L (38-126); Anion Gap 8 mmol/L (4-12); Aspartate Amino Transferase 16 U/L (14-36); Bilirubin,Total 0.2 mg/dL (0.2-1.3); Blood Urea Nitrogen 19 mg/dL (7-17); Calcium 9.1 mg/dL (8.4-10.2); Carbon Dioxide 24 mmol/L (22-30); Chloride 109 mmol/L (98-107); Estimated CRCL calculation 35 ml/min; Estimated Glomerular Filt Rate > 60; Glucose 121 mg/dL (65-110); Sodium 141 mmol/L (137-145)
[2024-01-22] MEDS: ENOXAPARIN 40 MG/0.4 ML SYRINGE SUB-Q (08:59)
[2024-01-22] MEDS: NICOTINE (*PBKC) 21 MG PATCH 1 PATCH TRANSDERM (09:00)
[2024-01-22] MEDS: predniSONE 40 MG, predniSONE 10 MG 50 MG PO (09:00)
[2024-01-22] MEDS: METOPROLOL SUCCINATE EXT REL 50 MG TABCR PO (09:01)
[2024-01-22] MEDS: PANTOPRAZOLE 40 MG TABLET PO (09:01)
--- NOTE | 2024-01-22 13:58 | PM.DS ---
DS: Admitting Diagnosis Discharge Date 01/22/2024 Admitting Diagnosis COPD exacerbation Fever Hypoxia Sinusitis Chronic back pain Restless leg syndrome Tobacco dependence DS: Discharge Diagnosis Discharge Diagnosis (1) COPD exacerbation: Code(s): J44.1 - Chronic obstructive pulmonary disease with (acute) exacerbation Status: Acute (2) Fever: Qualifiers: Fever type: unspecified Qualified Code(s): R50.9 - Fever, unspecified Code(s): R50.9 - Fever, unspecified Status: Acute (3) Hypoxia: Code(s): R09.02 - Hypoxemia Status: Resolved (4) Sinusitis, maxillary, chronic: Code(s): J32.0 - Chronic maxillary sinusitis Status: Acute (5) Chronic back pain: Qualifiers: Back pain laterality: bilateral Back pain location: back pain in unspecified location Qualified Code(s): M54.9 - Dorsalgia, unspecified; G89.29 - Other chronic pain Code(s): M54.9 - Dorsalgia, unspecified; G89.29 - Other chronic pain Status: Chronic (6) Restless leg syndrome: Code(s): G25.81 - Restless legs syndrome Status: Chronic (7) Tobacco dependence: Code(s): F17.200 - Nicotine dependence, unspecified, uncomplicated Status: Acute DS: Summary Hospital Course Reason for hospitalization: COPD exacerbation Fever Hypoxia Sinusitis Chronic back pain Restless leg syndrome Tobacco dependence Hospital Course: 78-year-old female past medical history of chronic tobacco abuse, COPD, hypothyroidism, essential hypertension and chronic pain who presented to the ER via EMS from home due to 4 days of shortness of breath. On admission patients labs were without leukocytosis and chemistry was unremarkable. She did have slight hypoxia that resolved with nebulizers while in the ED. A chest XR was obtained and showed no acute cardiopulmonary process. Patient notes that she was febrile prior to admission, she remained afebrile throughout stay. During her admission patient was treated for a COPD exacerbation and a possible underlying pneumonia not seen on the xray. She was started on IV antibiotics and steroids which were transitioned to PO at time of discharge. Prior to discharge patient denied chest pain, shortness of breath, nausea/vomiting and abdominal pain. Patient discharged home with family in stable condition. She is to complete her antibiotics as prescribed and follow up with her PCP in 1 week. Status at Discharge Functional status at discharge: independent ambulation Time Spent with Patient Time attestation: Total time spent providing and/or coordinating discharge services: Time spent: Greater than 30 minutes Exam Narrative: AF HR 71 RR 16 SpO2 98 BP 113/63 General: female in no acute respiratory distress who is nontoxic appearing, lying semi recumbent in bed. Chest: Lungs are clear but slightly diminshed to auscultation bilaterally. No wheezes or crackles. CV: Heart was regular rate and rhythm. S1-S2. No murmurs, gallops, or rubs. Abd: Abdomen was soft. Nontender. Nondistended. Positive bowel sounds. No organomegaly or masses. Ext: No clubbing, cyanosis, or edema. 2+ DP pulses bilaterally. DS: Data Data Completed and Pending Completed studies during hospitalization: chest XR Labs on day of discharge: Labs from last 24 hours 01/22/24 08:19 WBC 9.8 RBC 3.60 L Hgb 11.0 L Hct 34.4 L MCV 95.6 MCH 30.6 MCHC 32.0 RDW 11.9 Plt Count 175 MPV 11.7 H Immature Gran % (Auto) 1.7 H Neut % (Auto) 88.2 H Lymph % (Auto) 6.1 L [place] % (Auto) 3.9 Eos % (Auto) 0.0 Baso % (Auto) 0.1 L Lymph # (Auto) 0.60 L [place] # (Auto) 0.4 Eos # (Auto) 0.0 Baso # (Auto) 0.0 Abs Immat Gran (auto) 0.17 H Absolute Neuts (auto) 8.7 H Absolute Nucleated RBC 0.000 Nucleated RBC % 0.0 Sodium 141 Potassium 4.0 Chloride 109 H Carbon Dioxide 24 Anion Gap 8 BUN 19 H Creatinine 0.80 Estim Creat Clear Calc 35 Estimated GFR > 60 Gluc
[2024-01-23 17:28] LABS: Pneumococcal Antigen Urine NOT DETECTED
[2024-01-24 03:49] LABS: Legionella pneumophila Ag Ur NOT DETECTED
== END 2024-01-22 14:28 | disposition home or self-care (01) | DRG 192 ==
LOC: ANHED 22:45 → ANH3MEDSUR 01-20 00:15
PROVIDERS: Nurse Practitioner Adult Health; Admitting Provider Internal Medicine; Emergency Provider Emergency Medicine; PCP Nurse Practitioner Family; Visit Provider Student in an Organized Health Care Education/Training Program
DX: J44.1 Chronic obstructive pulmonary disease with (acute) exacerbation (principal); J32.0 Chronic maxillary sinusitis; E03.9 Hypothyroidism, unspecified; F17.210 Nicotine dependence, cigarettes, uncomplicated; G25.81 Restless legs syndrome; G89.29 Other chronic pain; K21.9 Gastro-esophageal reflux disease without esophagitis; M54.9 Dorsalgia, unspecified; Z66 Do not resuscitate; Z90.49 Acquired absence of other specified parts of digestive tract; Z85.028 Personal history of other malignant neoplasm of stomach; Z20.822 Contact with and (suspected) exposure to COVID-19
CPT/HCPCS: 36415; 36600; 71045; 80053; 85025; 85027; 85055; 87040; 87449; 87637; 87899; 93005; 94640; 96365; 99285; A9270; J0456; J0696; J1650; J2919; J3475; J7030; J7120; J7512

== ENCOUNTER 2024-10-13 09:01 | Outpatient (CLI) | payer MEDICARE, MEDICAID, SELFPAY ==
--- NOTE | ~2024-10-13 | US_ITS ---
US abdomen complete EXAMINATION: US Abdomen Complete INDICATION: Abdominal bloating PROCEDURE: Realtime High Resolution abdomen ultrasound. COMPARISON: CT dated 02/06/2014 FINDINGS: Gallbladder is surgically absent. Common bile duct measures 5 mm. There are scattered calcified granulomas of the liver parenchyma. No discrete mass identified. No karen iary dilatation. Normal directional flow in the portal vein. Pancreas within normal limits. Pancreat ic tail is obscured by bowel gas. Spleen contains calcified granulomas. Renal echotexture is within normal limits bilaterally without hydronephrosis, contour deforming mass or renal stone. Right kidney measures 6.3 cm. Left kidney measures 8 cm. Visualized aspects of the aorta and IVC are within normal limits. Portal vein is patent. No sonograph ic López's sign indicated by the technologist. IMPRESSION: 1: Status post cholecystectomy. 2: Mild right renal atrophy. Reviewed, dictated and finalized at location A.
== END 2024-10-13 09:02 | disposition home or self-care (01) ==
LOC: MICIMG 09:01
PROVIDERS: PCP Nurse Practitioner Family; Visit Provider Nurse Practitioner Family
DX: R14.0 Abdominal distension (gaseous) (principal); Z90.49 Acquired absence of other specified parts of digestive tract
CPT/HCPCS: 76700